=== PATIENT | female | born 1980 | race Caucasian/White ===

== ENCOUNTER 2017-01-28 20:16 | Emergency (ER) | payer MEDICAID, OTHER ==
[~2017-01-28] VITALS: Ht 160 cm; Wt 79.8 kg
[2017-01-28] MEDS ORDERED: PREN29TA PO (21:00)
--- NOTE | 2017-01-28 21:00 | PD ---
HPI Chief Complaint Contractions Date Seen: Jan 28, 2017 Time Seen: 20:54 Travel History International Travel<30 Days: No Contact w/Intl Traveler<30Days: No Known Affected Area: No History of Present Illness HPI 36-year-old 3 para 1 at 36-5/7 weeks' gestation with an EDC of February 20 who receives care from Dr[address] Antoine. She has been having intermittent contractions for several days. She denies leakage of fluid or bleeding. She had a prior and is planning an elective repeat with tubal ligation. History Past Medical History Medical History: Denies Significant Hx Obstetric History Obstetric History at 4 cm, D&C for miscarriage Past Surgical History Narrative Surgical , D&C Family History Family History: Negative Social History Alcohol Use: No Tobacco Use: No Substance Abuse: No Allergies-Medications (Allergen,Severity, Reaction): Coded Allergies: No Known Allergies (Unverified Adverse Reaction, Unknown, 01/28/17) Home Meds Reported Medications Vit-Iron Carbonyl ( Plus Iron 29-1 mg) 29 Mg Iron-1 Mg Tab, 1 TAB PO DAILY for Nutritional Supplement, #30 TAB 0 Refills 01/28/17 Review of Systems Except as stated in HPI: all other systems reviewed are Neg Physical Exam Narrative GENERAL: Well-nourished, well-developed patient. SKIN: Warm and dry. HEAD: Normocephalic and atraumatic. EYES: No scleral icterus. No injection or drainage. ENT: No nasal drainage noted. Mucous membranes pink. Airway patent. NECK: Supple, trachea midline. No JVD. CARDIOVASCULAR: Regular rate and rhythm without murmurs, gallops, or rubs. RESPIRATORY: Breath sounds equal bilaterally. No accessory muscle use. BREASTS: Bilateral exam showed no masses , no retractions, no nipple discharge. ABDOMEN/GI: Abdomen soft, non-tender, bowel sounds present, no rebound, no guarding Gravid to [-] weeks size Fundal Height: [37-] GENITOURINARY: External Genitalia: intact and normal in appearance BUS glands: [Negative-] Cervix: [-] Dilatation: [Closed-] Effacement: [-Long] Station: [-Ballotable] Presentation: [-] Membranes: [intact ] Uterine Contractions: [-Mild irregular] FHT's: Category: [-1] Baseline: [-] Reactive: [Yes-] Variability: [-] Decels: [-] EXTREMITIES: No cyanosis or edema. BACK: Nontender without obvious deformity. No CVA tenderness. NEUROLOGICAL: Awake and alert. Motor and sensory grossly within normal limits. Five out of 5 muscle strength in all muscle groups. Normal speech. Data Data Vital Signs Reviewed: Yes MDM Medical Record Reviewed: Yes Narrative Course / MDM Assessment: Multiparous female at 36 weeks 5 days gestation with irregular contractions without evidence of labor Plan: Labor precautions were reviewed. Follow for routine care visit. Diagnosis Diagnosis: Primary Impression: 36 weeks gestation of Additional Impression: Irregular uterine contractions Disposition: DISCHARGE HOME Arturo Palumbo MD Jan 28, 2017 21:00
== END 2017-01-28 21:20 | disposition home or self-care (01) ==
LOC: HOBED 20:16
DX: O47.03 False labor before 37 completed weeks of gestation, third trimester (principal); Z3A.36 36 weeks gestation of pregnancy
CPT/HCPCS: 99284

== ENCOUNTER 2017-07-26 14:16 | Observation (INO) | payer MEDICAID ==
[~2017-07-26] VITALS: Ht 160 cm; Wt 68.0 kg
[~2017-07-26 14:16] MED LIST: PREN29TA PO
[2017-07-26 14:31] VITALS: BP 145/66; PULSE 86; RESP 16; TEMP 98.5; O2SAT 97
[2017-07-26] MEDS ORDERED: MULT-65 PO (16:46)
[2017-07-26 16:47] VITALS: BP 138/83; PULSE 68; RESP 15; O2SAT 99
[2017-07-26] MEDS ORDERED: ASPIRIN 325 MG TAB PO ONE (17:15)
--- NOTE | 2017-07-26 17:37 | RADRPT ---
EXAM DATE/TIME: 07/26/2017 17:11 [facility] COMPARISON: No previous studies available for comparison. INDICATIONS : Chest pain. MEDICAL HISTORY : None. SURGICAL HISTORY : None. ENCOUNTER: Initial ACUITY: 1 week PAIN SCORE: 6/10 LOCATION: Left chest. FINDINGS: A single view of the chest demonstrates the lungs to be symmetrically aerated without evidence of mas s, infiltrate or effusion. The cardiomediastinal contours are unremarkable. Osseous structures are intact. CONCLUSION: No acute disease. Rudolph Chavez MD on July 26, 2017 at 17:35 Board Certified Radiologist. This report was verified electronically.
[2017-07-26 17:43] LABS: AUTOMATED NEUTROPHIL # 3.7 TH/MM3 (1.8-7.7); BASOPHIL % 0.6 % (0.0-2.0); EOSINOPHIL # 0.2 TH/MM3 (0-0.4); EOSINOPHIL % 2.8 % (0.0-4.0); HEMATOCRIT 40.8 % (35.0-46.0); HEMOGLOBIN 13.8 GM/DL (11.6-15.3); LYMPHOCYTE # 2.2 TH/MM3 (1.0-4.8); MEAN CELL VOLUME 84.3 FL (80.0-100.0); MEAN CORPUSCULAR HEMOGLOBIN 28.6 PG (27.0-34.0); MEAN CORPUSCULAR HGB CONC 33.9 % (32.0-36.0); MEAN PLATELET VOLUME 9.5 FL (7.0-11.0); MONO % 7.4 % (0.0-8.0); MONOCYTE # 0.5 TH/MM3 (0-0.9); NEUT % 56.2 % (16.0-70.0); PLATELET COUNT 191 TH/MM3 (150-450); RED BLOOD COUNT 4.84 MIL/MM3 (4.00-5.30); RED CELL DISTRIBUTION WIDTH 14.4 % (11.6-17.2); WHITE BLOOD COUNT 6.6 TH/MM3 (4.0-11.0)
[2017-07-26 18:08] LABS: ALBUMIN 4.3 GM/DL (3.4-5.0); ALT (GPT) 22 U/L (10-53); AST (GOT) 13 U/L (15-37); BICARBONATE 25.1 MEQ/L (21.0-32.0); BLOOD UREA NITROGEN 8 MG/DL (7-18); CALCIUM 9.3 MG/DL (8.5-10.1); CHLORIDE 108 MEQ/L (98-107); CREATININE 0.89 MG/DL (0.50-1.00); GLOMERULAR FILTRATION RATE 72 ML/MIN (>89); GLUCOSE,RANDOM 105 MG/DL (74-106); SODIUM (NA) 141 MEQ/L (136-145)
[2017-07-26 18:13] LABS: ALKALINE PHOSPHATASE 49 U/L (45-117); TOTAL BILIRUBIN ADULT 0.3 MG/DL (0.2-1.0); TOTAL PROTEIN 7.8 GM/DL (6.4-8.2); TROPONIN I LESS THAN 0.02 NG/ML (0.02-0.05)
[2017-07-26 18:24] LABS: INTERNATIONAL NORMALIZED RATIO 1.1 RATIO; PROTHROMBIN TIME - PATIENT 10.8 SEC (9.8-11.6)
[2017-07-26 18:26] LABS: D-DIMER 0.49 MG/L FEU (0.00-0.50)
--- NOTE | 2017-07-26 18:29 | PD ---
HPI Chief Complaint: Chest Pain Time Seen by Provider: 16:33 Travel History International Travel<30 days: No Contact w/Intl Traveler<30days: No Traveled to known affect area: No History of Present Illness HPI 36 yo female here for evaluation of left-sided chest pain. Per patient his pain has been ongoing for about a week. Comes and goes. Feels like a pressure and goes all the way to the other side of the clavicle. No history of this in the past. No history of cardiac disease on herself. She takes no medications but she had a recent surgery including for her 5-month-old child. She has a history of pulmonary embolisms in the family. Per patient 1 of her sisters had a TIA and a blood clot. She is concerned she may be having the same. She denies any history of heart disease. She denies smoking. No drug abuse. No alcohol. Per patient she has her tubes tied and takes no control. Denies any abdominal pain. Per patient sometimes she gets nauseous with the pain. Per patient sometimes the pain goes to her left arm because of lack of numbness and tingling. Does radiate to the neck. Is more pressure- like and currently is 4 out of 10. When it comes to be severe he can be 8 out of 10. Has no allergies to medication. No other medical issues. No injuries or trauma. 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 PFSH Past Medical History Diminished Hearing: No Genitourinary: Yes (FREQUENT UTI) Kidney Stones: Yes Psychiatric: Yes (panic attacks) Influenza Vaccination: Yes ?: Not LMP: 06/2017 : 3 Para: 1 Miscarriage: 1 : 1 Dilation and Curettage (D&C): Yes Tubal Ligation: Yes Past Surgical History Gynecologic Surgery: Yes (D&C) Social History Alcohol Use: Yes (occasionally) Tobacco Use: Yes Substance Use: Yes (marijuana) Allergies-Medications (Allergen,Severity, Reaction): Coded Allergies: No Known Allergies (Unverified Adverse Reaction, Unknown, 07/26/17) Reported Meds & Prescriptions Reported Meds & Active Scripts Active Reported Multi-Vitamin Daily (Multiple Vitamin) 1 Tab Tab 1 Tab PO DAILY Review of Systems Except as stated in HPI: all other systems reviewed are Neg Physical Exam Narrative GENERAL: SKIN: Warm and dry. HEAD: Atraumatic. Normocephalic. EYES: Pupils equal and round. No scleral icterus. No injection or drainage. ENT: No nasal bleeding or discharge. Mucous membranes pink and moist. Tongue is midline. No uvula deviation. NECK: Trachea midline. No JVD. CARDIOVASCULAR: Regular rate and rhythm. No murmurs, S3, S4. RESPIRATORY: No accessory muscle use. Clear to auscultation. Breath sounds equal bilaterally. GASTROINTESTINAL: Abdomen soft, non-tender, nondistended. Hepatic and splenic margins not palpable. MUSCULOSKELETAL: Extremities without clubbing, cyanosis, or edema. No obvious deformities. Full range of motion of the upper and lower extremities bilaterally. 2+ pulses bilaterally. NEUROLOGICAL: Awake and alert. No obvious cranial nerve deficits. Motor grossly within normal limits. Five out of 5 muscle strength in the arms and legs. Normal speech. PSYCHIATRIC: Appropriate mood and affect; insight and judgment normal. Data Data Last Documented VS Vital Signs Date Time Temp Pulse Resp B/P (MAP) Pulse Ox O2 Delivery O2 Flow Rate FiO2 07/26/17 19:16 82 16 133/87 (102) 99 Room Air 07/26/17 14:31 98.5 Orders Orders Electrocardiogram (07/26/17 ) Electrocardiogram (07/26/17 17:02) Complete Blood Count With Diff (07/26/17 17:02) Comprehensive Metabolic Panel (07/26/17 17:02) Ckmb (Isoenzyme) Profile (07/26/17 17:02) Troponin I (07/26/17 17:02) Prothrombin Time / Inr (Pt) (07/26/17 17:02) Act Partial Throm Time (Ptt) (07/26/17 17:02) Lipase (07/26/17 17:02) D-Dimer (07/26/17 17:02) Chest, Single Ap (07/26/17 17:02) Iv Access Insert/Monitor (07/26/17 17:02) Ecg Monitoring (07/26/17 17:02) Oximetry (07/26/17 17:02) Aspirin (Aspirin) (07/26/17 17:15) Admit Order (Ed Use Only) (07/26/17 19:40) Labs Laboratory Tests Test 07/26/17 17:15 White Blood Count 6.6 TH/MM3 Red Blood Count 4.84 MIL/MM3 Hemoglobin 13.8 GM/DL Hematocrit 40.8 % Mean Corpuscular Volume 84.3 FL Mean Corpuscular Hemoglobin 28.6 PG Mean Corpuscular Hemoglobin Concent 33.9 % Red Cell Distribution Width 14.4 % Platelet Count 191 TH/MM3 Mean Platelet Volume 9.5 FL Neutrophils (%) (Auto) 56.2 % Lymphocytes (%) (Auto) 33.0 % Monocytes (%) (Auto) 7.4 % Eosinophils (%) (Auto) 2.8 % Basophils (%) (Auto) 0.6 % Neutrophils # (Auto) 3.7 TH/MM3 Lymphocytes # (Auto) 2.2 TH/MM3 Monocytes # (Auto) 0.5 TH/MM3 Eosinophils # (Auto) 0.2 TH/MM3 Basophils # (Auto) 0.0 TH/MM3 CBC Comment DIFF FINAL Differential Comment Prothrombin Time 10.8 SEC Prothromb Time International Ratio 1.1 RATIO Activated Partial Thromboplast Time 25.0 SEC D-Dimer Quantitative (PE/DVT) 0.49 MG/L FEU Blood Urea Nitrogen 8 MG/DL Creatinine 0.89 MG/DL Random Glucose 105 MG/DL Total Protein 7.8 GM/DL Albumin 4.3 GM/DL Calcium Level 9.3 MG/DL Alkaline Phosphatase 49 U/L Aspartate Amino Transf (AST/SGOT) 13 U/L Alanine Aminotransferase (ALT/SGPT) 22 U/L Total Bilirubin 0.3 MG/DL Sodium Level 141 MEQ/L Potassium Level 3.6 MEQ/L Chloride Level 108 MEQ/L Carbon Dioxide Level 25.1 MEQ/L Anion Gap 8 MEQ/L Estimat Glomerular Filtration Rate 72 ML/MIN Total Creatine Kinase 92 U/L Troponin I LESS THAN 0.02 NG/ML Lipase 138 U/L [facility] Medical Decision Making Medical Screen Exam Complete: Yes Emergency Medical Condition: Yes Medical Record Reviewed: Yes Interpretation(s) CBC & BMP Diagram 07/26/17 17:15 Total Protein 7.8, Albumin 4.3, Calcium Level 9.3, Alkaline Phosphatase 49, Aspartate Amino Transf (AST/SGOT) 13 L, Alanine Aminotransferase (ALT/SGPT) 22, Total Bilirubin 0.3 Troponin and CK-MB negative. EKG shows sinus rhythm with no sign of acute ischemia or arrhythmia read by me and attending. D-dimer and coags within normal limits. Lipase within normal limits. Last Impressions Chest X-Ray 07/26/17 1702 Signed Impressions: Service Date/Time: Wednesday, July 26, 2017 17:11 - CONCLUSION: No acute disease. Rudolph Chavez MD Differential Diagnosis Chest pain versus typical chest pain versus pulmonary embolism versus ACS versus costochondritis versus pneumonia Narrative Course 36-year-old female that presents to the ED for evaluation of left-sided chest pain. Patient was properly examined and was found to have signs and symptoms of unclear etiology but concerning for pulmonary embolism versus atypical chest pain versus ACS. Labs and imaging order. Given aspirin to cover for ACS. Labs and imaging showed no sign of acute disease. Patient does tell me that he does have a family history of blood clots including heart disease, TIAs and PEs. Per patient her sister had blood clots in some of her family had had a history of ACS at a young age. She has no risk factors for this at this time but I did offer admission to the chest pain center for chest pain center rule out as there is no clear diagnosis for her chest discomfort. I do suspect that this may be anxiety related but unclear. Patient does want to have chest pain center rule out. Patient will be admitted to chest pain center by me. Case discussed with my attending agrees with plan. Patient was admitted. Diagnosis Primary Impression: Chest pain in adult Admitting Information Admitting Physician Requests: Niko Hussein July 26, 2017 18:29
[2017-07-26 19:16] VITALS: BP 133/87; PULSE 82; RESP 16; O2SAT 99
[2017-07-26] MEDS ORDERED: ACETAMINOPHEN 500 MG CPLT PO PRN (19:45)
[2017-07-26] MEDS ORDERED: ONDANSETRON HCL 4 MG/2 ML VIAL IV PUSH PRN (19:45)
[2017-07-26] MEDS ORDERED: SODIUM CHLORIDE 0.9% FLUSH 10 ML FLUSH IV FLUSH PRN (19:45)
[2017-07-26 20:48] VITALS: BP 122/68; PULSE 65; RESP 16; TEMP 98.2; O2SAT 98
[2017-07-26 21:19] LABS: TROPONIN I LESS THAN 0.02 NG/ML (0.02-0.05)
[2017-07-26] MEDS: SODIUM CHLORIDE 0.9% FLUSH 10 ML FLUSH IV FLUSH SCH (22:15)
[2017-07-26 23:14] VITALS: BP 111/64; PULSE 67; RESP 16; TEMP 98; O2SAT 98
[2017-07-26 23:17] VITALS: PULSE 74
[2017-07-27 00:16] LABS: TROPONIN I LESS THAN 0.02 NG/ML (0.02-0.05)
[2017-07-27 04:10] VITALS: PULSE 59
[2017-07-27 04:27] VITALS: BP 111/58; PULSE 62; RESP 16; TEMP 98.5; O2SAT 97
[2017-07-27 07:14] VITALS: PULSE 65
[2017-07-27] MEDS: SODIUM CHLORIDE 0.9% FLUSH 10 ML FLUSH IV FLUSH SCH (07:48)
--- NOTE | 2017-07-27 09:09 | HHI.HP ---
HPI Primary Care Physician No Primary Care Physician Chief Complaint Chest pain History of Present Illness This is a 36-year-old female that presents to ED via private vehicle complaining 1 weeks intermittent chest tightness. Will last 10-15 minutes. Nothing particular brings it on. Occasionally some shortness of breath nausea. No diaphoresis. States she is very healthy. 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 States she is still very active with 2 full-time jobs and does not generally get chest discomforts. Found nothing to worsen or improve the discomfort when she had them over the last week. States they have been very random. Denies recent illness. Denies fevers or chills. Denies , states she had a tubal ligation with her 5 months ago. Currently denies chest discomfort. Review of Systems General: Patient denies fevers, chills, and recent travel. HEENT: Patient denies headache, sore throat, difficulty swallowing. Cardiovascular: Has the chest discomfort as mentioned above. Denies sensation of heart beating rapidly or irregularly. No syncope. Denies diaphoresis. Respiratory: Occasional shortness of breath. Denies inspirational chest discomfort. Denies coughing wheezing or hemoptysis. GI: Occasional nausea. Patient denies vomiting, diarrhea, abdominal pain, bloody stools. Musculoskeletal: Patient denies joint pain or edema. Denies calf pain or edema. Neurovascular: Patient denies numbness, tingling, weakness in extremities. Denies headache. Endocrine: Denies polyuria and polydipsia. Hematologic: Denies easy bruising. Skin: Denies rash or itching. Past Family Social History Allergies: Coded Allergies: No Known Allergies (Unverified Adverse Reaction, Unknown, 07/26/17) Past Medical History Denies hypertension, hyperlipidemia, diabetes, and CAD. Non-smoker. Past Surgical History 2 and a tubal ligation. Reported Medications Reported Meds & Active Scripts Active Reported Multi-Vitamin Daily (Multiple Vitamin) 1 Tab Tab 1 Tab PO DAILY Active Ordered Medications Current Medications Medications (Trade) Dose Ordered Sig/Senait Route Start Time Stop Time Status Last Admin (NS Flush) 2 ml UNSCH PRN IV FLUSH 07/26/17 19:45 (NS Flush) 2 ml BID IV FLUSH 07/26/17 21:00 07/27/17 07:48 (Tylenol) 500 mg Q4H PRN PO 07/26/17 19:45 07/26/17 22:14 (Zofran Inj) 4 mg Q6H PRN IV PUSH 07/26/17 19:45 Family History Denies family history of CAD. Social History States she is essentially non-smoker. States she may have 1 or 2 cigarettes per month. Denies alcohol or illicit drug use. Physical Exam Vital Signs Vital Signs Date Time Temp Pulse Resp B/P (MAP) Pulse Ox O2 Delivery O2 Flow Rate FiO2 07/27/17 07:14 65 07/27/17 04:27 98.5 62 16 111/58 (75) 97 07/27/17 04:10 59 07/26/17 23:17 74 07/26/17 23:14 98.0 67 16 111/64 (80) 98 07/26/17 20:48 98.2 65 16 122/68 (86) 98 07/26/17 20:42 07/26/17 19:16 82 16 133/87 (102) 99 Room Air 07/26/17 16:47 68 15 138/83 (101) 99 Room Air 07/26/17 14:31 98.5 86 16 145/66 (92) 97 Physical Exam GENERAL: This is a well-nourished, well-developed patient, in no apparent distress. Patient speaks in clear complete sentences. Patient is pleasant. HEENT: Head is atraumatic and normocephalic. Neck is supple without lymphadenopathy and trachea is midline. No JVD or carotid bruits. CARDIOVASCULAR: Regular rate and rhythm without murmurs, gallops, or rubs. RESPIRATORY: Clear to auscultation. Breath sounds equal bilaterally. No wheezes , rales, or rhonchi. Chest wall is nontender. No use of accessory muscles. GASTROINTESTINAL: Abdomen is nontender, nondistended. Abdomen soft. No obvious pulsatile mass or bruit. No CVA tenderness. Strong femoral pulses bilaterally. Normal bowel sounds in all quadrants. MUSCULOSKELETAL: Patient is moving upper and lower extremities freely. No calf tenderness or edema, no Homans sign. Strong pulses in upper and lower extremities. NEUROLOGICAL: Patient is alert and oriented. Cranial nerves 2-12 are grossly intact. No focal deficits and speech is clear. SKIN: No rash and turgor is normal. Laboratory Laboratory Tests Test 07/26/17 17:15 07/26/17 20:30 07/26/17 23:20 White Blood Count 6.6 Red Blood Count 4.84 Hemoglobin 13.8 Hematocrit 40.8 Mean Corpuscular Volume 84.3 Mean Corpuscular Hemoglobin 28.6 Mean Corpuscular Hemoglobin Concent 33.9 Red Cell Distribution Width 14.4 Platelet Count 191 Mean Platelet Volume 9.5 Neutrophils (%) (Auto) 56.2 Lymphocytes (%) (Auto) 33.0 Monocytes (%) (Auto) 7.4 Eosinophils (%) (Auto) 2.8 Basophils (%) (Auto) 0.6 Neutrophils # (Auto) 3.7 Lymphocytes # (Auto) 2.2 Monocytes # (Auto) 0.5 Eosinophils # (Auto) 0.2 Basophils # (Auto) 0.0 CBC Comment DIFF FINAL Differential Comment Prothrombin Time 10.8 Prothromb Time International Ratio 1.1 Activated Partial Thromboplast Time 25.0 D-Dimer Quantitative (PE/DVT) 0.49 Blood Urea Nitrogen 8 Creatinine 0.89 Random Glucose 105 Total Protein 7.8 Albumin 4.3 Calcium Level 9.3 Alkaline Phosphatase 49 Aspartate Amino Transf (AST/SGOT) 13 Alanine Aminotransferase (ALT/SGPT) 22 Total Bilirubin 0.3 Sodium Level 141 Potassium Level 3.6 Chloride Level 108 Carbon Dioxide Level 25.1 Anion Gap 8 Estimat Glomerular Filtration Rate 72 Total Creatine Kinase 92 98 75 Troponin I LESS THAN 0.02 LESS THAN 0.02 LESS THAN 0.02 Lipase 138 Result Diagram: 07/26/17 1715 07/26/17 1715 Imaging Last 24 hours Impressions Chest X-Ray 07/26/17 1702 Signed Impressions: Service Date/Time: Wednesday, July 26, 2017 17:11 - CONCLUSION: No acute disease. Rudolph Chavez MD Course EKGs are sinus rhythm without significant ST segment depressions or elevations. Caprini VTE Risk Assessment Caprini VTE Risk Assessment: No/Low Risk (score <= 1) Caprini Risk Assessment Model Point Value = 1 Point Value = 2 Point Value = 3 Point Value = 5 Age 41-60 Minor surgery BMI > 25 kg/m2 Swollen legs Varicose veins or History of unexplained or recurrent spontaneous Oral contraceptives or hormone replacement Sepsis (< 1 month) Serious lung disease, including pneumonia (< 1 month) Abnormal pulmonary function Acute myocardial infarction Congestive heart failure (< 1 month) History of inflammatory bowel disease Medical patient at bed rest Age 61-74 Arthroscopic surgery Major open surgery (> 45 min) Laparoscopic surgery (> 45 min) Malignancy Confined to bed (> 72 hours) Immobilizing plaster cast Central venous access Age >= 75 History of VTE Family history of VTE Factor V Leiden Prothrombin [id number] Lupus anticoagulant Anticardiolipin antibodies Elevated serum homocysteine Heparin-induced thrombocytopenia Other congenital or acquired thrombophilia Stroke (< 1 month) Elective arthroplasty Hip, pelvis, or leg fracture Acute spinal cord injury (< 1 month) Prophylaxis Regimen Total Risk Factor Score Risk Level Prophylaxis Regimen 0-1 Low Early ambulation 2 Moderate Order ONE of the following: *Sequential Compression Device (SCD) *Heparin 5000 units SQ BID 3-4 Higher Order ONE of the following medications: *Heparin 5000 units SQ TID *Enoxaparin/Lovenox 40 mg SQ daily (WT < 150 kg, CrCl > 30 mL/min) *Enoxaparin/Lovenox 30 mg SQ daily (WT < 150 kg, CrCl > 10-29 mL/min) *Enoxaparin/Lovenox 30 mg SQ BID (WT < 150 kg, CrCl > 30 mL/min) AND/OR *Sequential Compression Device (SCD) 5 or more Highest Order ONE of the following medications: *Heparin 5000 units SQ TID (Preferred with Epidurals) *Enoxaparin/Lovenox 40 mg SQ daily (WT < 150 kg, CrCl > 30 mL/min) *Enoxaparin/Lovenox 30 mg SQ daily (WT < 150 kg, CrCl > 10-29 mL/min) *Enoxaparin/Lovenox 30 mg SQ BID (WT < 150 kg, CrCl > 30 mL/min) AND *Sequential Compression Device (SCD) Assessment and Plan Assessment and Plan * Chest pain: Patient has had serial cardiac enzymes and EKGs for ruling out purposes. She was seen by Dr. José Aggarwal of cardiology in the chest pain center and will have a Justin protocol ETT. Patient will be discharged home if her stress test is nonischemic with instructions to follow-up with PCP. Return to ED for interval issues. Patient is stable at this time. She is agreeable to this plan. Gómez Stevenson July 27, 2017 09:09
--- NOTE | 2017-07-27 09:15 | HHI.DCPOC ---
Discharge Care Plan Diagnosis: (1) Chest pain Goals to Promote Your Health * To prevent worsening of your condition and complications * To maintain your health at the optimal level Directions to Meet Your Goals Take your medications as prescribed Follow your dietary instruction Follow activity as directed Keep your appointments as scheduled Take your immunizations and boosters as scheduled If your symptoms worsen call your PCP, if no PCP go to Urgent Care Center or Emergency Room Smoking is Dangerous to Your Health. Avoid second hand smoke Call the 24-hour hour crisis hotline for domestic abuse at Gómez Stevenson July 27, 2017 09:15
[2017-07-27 09:16] VITALS: BP 111/66; PULSE 75; RESP 18; TEMP 97.7; O2SAT 97
--- NOTE | 2017-07-27 14:04 | EKG ---
Date Performed: 07/26/2017 Time Performed: 23:15:08 PTAGE: 36 years EKG: Sinus rhythm NORMAL ECG PREVIOUS TRACING : 07/26/2017 20.28 Since previous tracing, no significant change noted DOCTOR: José Aggarwal Interpretating Date/Time 07/27/2017 14:03:01
--- NOTE | 2017-07-27 14:06 | EKG ---
Date Performed: 07/26/2017 Time Performed: 20:28:35 PTAGE: 36 years EKG: Sinus rhythm NORMAL ECG PREVIOUS TRACING : 07/26/2017 14.53 Since previous tracing, no significant change noted DOCTOR: José Aggarwal Interpretating Date/Time 07/27/2017 14:04:50
--- NOTE | 2017-07-27 14:08 | EKG ---
Date Performed: 07/26/2017 Time Performed: 14:53:15 PTAGE: 36 years EKG: Sinus rhythm WITH SINUS ARRHYTHMIA NORMAL ECG NO PREVIOUS TRACING DOCTOR: José Aggarwal Interpretating Date/Time 07/27/2017 14:06:18
--- NOTE | 2017-07-27 14:12 | TR ---
Date Performed: 07/27/2017 Time Performed: 08:15:23 DOCTOR: José Aggarwal DRUG LIST: CLINICAL HISTORY: REASON FOR TEST: REASON FOR ENDING: OBSERVATION: CONCLUSION: KARI PROTOCOL. NO CP. TEST STOPPED AFTER EXCEEDING GOAL HR SECONDARY TO SOB AND LEG FATIGUE.Maximum UF=816 % Max HR Achieved=94.0% Maximum RI=503/74 Total Exercise Time=11:01 COMMENTS: Patient exercised using the Kari protocol. No electrocardiographic changes were seen to suggest ischemia. Hemodynamic response to exercise was normal. No significant arrhythmia was prese nt.
== END 2017-07-27 12:35 | disposition home or self-care (01) ==
LOC: NEPC 14:16 → NEDA 19:42 → NEPHCDU 20:32
PROVIDERS: ADMIT Internal Medicine Interventional Cardiology; ATTEND Internal Medicine Interventional Cardiology
DX: R07.89 Other chest pain (principal); R06.02 Shortness of breath; R11.0 Nausea; I49.9 Cardiac arrhythmia, unspecified; F17.210 Nicotine dependence, cigarettes, uncomplicated; F12.90 Cannabis use, unspecified, uncomplicated
CPT/HCPCS: 71045; 80053; 82550; 83690; 84484; 85025; 85379; 85610; 85730; 93005; 93017; 99285; G0378